=== PATIENT | male | born 1985 | race African-American/Black ===

== ENCOUNTER 2019-01-16 05:11 | Emergency (ER) | payer SELFPAY ==
[~2019-01-16] VITALS: Ht 177.8 cm; Wt 127.0 kg
[2019-01-16 06:29] VITALS: BP 136/79
== END 2019-01-16 08:05 | disposition left against medical advice (07) ==
LOC: ER 05:11
DX: J34.89 Other specified disorders of nose and nasal sinuses (principal); Z53.21 Procedure and treatment not carried out due to patient leaving prior to being seen by health care provider

== ENCOUNTER 2019-07-30 12:00 | Emergency (ER) | payer BC ==
[~2019-07-30] VITALS: Ht 177.8 cm; Wt 127.0 kg
[2019-07-30 13:38] VITALS: BP 126/76
== END 2019-07-30 13:39 | disposition home or self-care (01) ==
LOC: ER 12:00
DX: M54.5 Low back pain (principal); R03.0 Elevated blood-pressure reading, without diagnosis of hypertension
CPT/HCPCS: 99282